=== PATIENT | female | born 1965 | race Caucasian/White ===

== ENCOUNTER 2017-07-25 12:04 | Observation (INO) | payer BC ==
[2017-07-25] MEDS: Dextrose 5%-Lactated Ringers 1,000 ML IV SCH ×2 (12:21→18:05)
[2017-07-25] MEDS: Enoxaparin 40 MG/0.4 ML Syringe SUBCUT SCH (13:12)
[2017-07-25] MEDS: Acetaminophen 325 MG Tab PO PRN (13:12)
[2017-07-25] MEDS ORDERED: Albuterol 8 GM Inhaler INH PRN (13:43)
[2017-07-25] MEDS ORDERED: SUMAtriptan 50 MG Tab PO PRN (14:30)
[2017-07-25] MEDS: Albuterol/Ipratropium 3.0-0.5 MG/3 ML Neb Soln NEB SCH ×2 (14:35→22:04)
[2017-07-25] MEDS: methylPREDNISolone Sodium Succinate 125 MG/2 ML SDV IVPUSH SCH ×2 (14:49→22:00)
[2017-07-25] MEDS: traMADol 50 MG Tab PO PRN ×2 (17:01→23:12)
[2017-07-25] MEDS: Oseltamivir 30 MG Cap PO SCH (18:04)
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
[2017-07-25] MEDS: LORazepam 0.5 MG Tab PO SCH (22:03)
[2017-07-25] MEDS: Topiramate 25 MG Tab PO SCH (22:03)
[2017-07-25] MEDS: Amitriptyline 25 MG Tab PO SCH (22:03)
[2017-07-25] MEDS: cefTRIAXone 1 GM Vial IVPUSH SCH (23:12)
[2017-07-26] MEDS: Dextrose 5%-Lactated Ringers 1,000 ML IV SCH (01:58)
[2017-07-26] MEDS: methylPREDNISolone Sodium Succinate 125 MG/2 ML SDV IVPUSH SCH ×3 (06:22→21:31)
[2017-07-26] MEDS: traMADol 50 MG Tab PO PRN ×3 (06:22→20:08)
[2017-07-26] MEDS: Levothyroxine 150 MCG Tab PO SCH (06:23)
[2017-07-26] MEDS: Albuterol/Ipratropium 3.0-0.5 MG/3 ML Neb Soln NEB SCH (07:12)
[2017-07-26] MEDS: cefTRIAXone 1 GM Vial IVPUSH SCH (07:56)
[2017-07-26] MEDS: Enoxaparin 40 MG/0.4 ML Syringe SUBCUT SCH (07:56)
[2017-07-26] MEDS: Multivitamins with Iron/Calcium/Folic Acid/Minerals Tab PO SCH (07:57)
[2017-07-26] MEDS: Montelukast 10 MG Tab PO SCH (07:57)
[2017-07-26] MEDS: Topiramate 25 MG Tab PO SCH ×2 (07:57→20:10)
[2017-07-26] MEDS: LORazepam 0.5 MG Tab PO SCH ×2 (07:57→20:09)
[2017-07-26] MEDS: Oseltamivir 30 MG Cap PO SCH ×2 (07:57→20:08)
[2017-07-26] MEDS: Venlafaxine 75 MG Cap.ER PO SCH (07:57)
[2017-07-26] MEDS: Acetaminophen 325 MG Tab PO PRN (07:57)
[2017-07-26] MEDS ORDERED: Ibuprofen 200 MG Tab PO PRN (08:37)
[2017-07-26] MEDS: BIOTIN 5 MG PO SCH (08:54)
[2017-07-26] MEDS: BUPROPION 450 MG PO SCH (08:54)
--- NOTE | 2017-07-26 09:36 | PN ---
Progress Note for SANTHOSH PRESCOTT Date: 07/26/2017 Room #: VM.212 SUBJECTIVE: The patient was admitted yesterday with a diagnosis of acute influenza A with exacerbation of asthma. Since being admitted, she has had problems with a headache as well as abdominal pain, it has gotten better today. She has been moving around in the room. She has been on a little bit less oxygen. She comments that the DuoNebs do make her tremulous. She had been watching the clock for the tramadol use for headaches. Since the patient has been up ambulating fairly well, the Lovenox is not felt to be necessary anymore. OBJECTIVE: Vital Signs: Her temperature now is down to 36.1 with max on admission of 38.9. Her pulse is 80 and blood pressure is 143/88. Her saturations are 97 on 1.5 L. General: She appears alert. Skin: Appears well hydrated. Heart: Regular rate and rhythm. Lungs: Do have inspiratory wheezes bilaterally, but there is better air exchange bilaterally noted. Abdomen: Bowel sounds present. Soft, nontender. Extremities: No edema. Neurologic: She is alert and pleasant to visit with. LABORATORY DATA: Chest x-ray today looks normal with no infiltrates seen. Her sputum culture did show gram-positive cocci with white blood cells present, with few epithelial cells. Her lab today; her white blood cell count is 4.3, hemoglobin 13.4, and platelets are 206; 87 segs, 3 bands, 8 lymphocytes. Sodium 142; potassium 4.1; creatinine 1.2, which may be her baseline; BUN 14; GFR is 47; glucose is up to 166. LFTs are normal. Her lactic acid was 0.8 on admission, did go up to 2.0 last evening, so hence the reason that Rocephin was added. Her CRP was 4.9 yesterday, it is down to 3.9 today. IMPRESSION: 1. Acute influenza A. 2. Possible bronchopneumonia. 3. Exacerbation of asthma. 4. Dehydration, improving. 5. Chronic kidney disease. 6. Chronic headache. PLAN: We will reduce her IV Solu-Medrol dose. We will stop the DuoNebs and instead have her use her albuterol MDI with a spacer to see if that helps improve lung function. To note, her peak flow was done today, it was 200. The patient does not need physical therapy. We will stop the Lovenox and actually offer ibuprofen as well for pain control for the patient. The patient does not quite feel safe to go home yet in terms of breathing oakley, and so we will continue her another 24 hours on observation and do anticipate she will be able to go home tomorrow. We will work on weaning off her oxygen as well. GM07/26/2017 08:41:44 MODL: 07/26/2017 09:23:28 /[id number]
[2017-07-26] MEDS: Amitriptyline 25 MG Tab PO SCH (20:09)
[2017-07-27] MEDS: Levothyroxine 150 MCG Tab PO SCH (06:17)
[2017-07-27] MEDS: methylPREDNISolone Sodium Succinate 125 MG/2 ML SDV IVPUSH SCH (06:17)
[2017-07-27] MEDS: traMADol 50 MG Tab PO PRN (06:18)
[2017-07-27] MEDS: Oseltamivir 30 MG Cap PO SCH (07:56)
[2017-07-27] MEDS: LORazepam 0.5 MG Tab PO SCH (07:57)
[2017-07-27] MEDS: BUPROPION 450 MG PO SCH (07:57)
[2017-07-27] MEDS: BIOTIN 5 MG PO SCH (07:57)
[2017-07-27] MEDS: Montelukast 10 MG Tab PO SCH (07:57)
[2017-07-27] MEDS: cefTRIAXone 1 GM Vial IVPUSH SCH (07:57)
[2017-07-27] MEDS: Venlafaxine 75 MG Cap.ER PO SCH (07:57)
[2017-07-27] MEDS: Multivitamins with Iron/Calcium/Folic Acid/Minerals Tab PO SCH (07:58)
[2017-07-27] MEDS: Topiramate 25 MG Tab PO SCH (07:58)
--- NOTE | 2017-07-27 08:59 | PN ---
Progress Note for SANTHOSH PRESCOTT Date: 07/27/2017 Room #: VM.212 SUBJECTIVE: The patient is feeling better, but still somewhat tight. She has been able to get off oxygen. She has been drinking well. Her IV fluids were stopped yesterday. OBJECTIVE: Vital Signs: Today, her temperature is 36.3, her pulse is 90, her blood pressure is 152/89, respiratory rate is 20, her sats are 94% on room air. Her peak flow meter was noted to be 250, which has improved from 200. Heart: Regular rate and rhythm. Lungs: Do reveal inspiratory wheezes bilaterally, but much better air flow. Abdomen: Soft. Extremities: No edema. LABORATORY DATA: Current lab today shows that her sputum culture was normal nguyễn. Her white blood cell count was down to 12.2, which I feel is related to her IV steroids. She still has a left shift. Hemoglobin is 14.0. Sodium 139, potassium 4.1, creatinine 1.1, GFR is 52, glucose is 133. IMPRESSION: 1. Influenza A. 2. Bronchopneumonia. 3. Exacerbation of asthma. PLAN: I do feel the patient is stable to be discharged home. She commented that [facility] not wanting her to give him influenza. I stated that she is afebrile and on medicines for over 24 hours, so she should not be contagious. She should not though return to work until seen in the clinic by Carmen Huang. We will place her on oral prednisone as well as Ceftin antibiotics as well as she will be using her albuterol inhalers at home. GM07/27/2017 08:34:24 MODL: 07/27/2017 08:50:15 /[id number]
--- NOTE | 2017-07-27 10:15 | DISCH ---
PRIMARY DIAGNOSES: 1. Influenza A. 2. Exacerbation of asthma. 3. Bronchitis. 4. Mild dehydration. 5. Chronic kidney disease. 6. Headache. 7. Chronic migraine headaches. 8. Deconditioning. SUMMARY OF ADMIT HISTORY AND PHYSICAL: The patient is a 51-year-old female presents to the clinic who was initially seen by Carmen Huang. She is noted to be quite short of breath. She was tachycardic, pulses up to the 120s. She felt to be weak. She was feeling short of breath. On physical exam, she had quite tight lungs and she was flushed. She had been having a fever up to 102 and so it is felt need to be admitted to the hospital and further worked up. SUMMARY OF HOSPITAL COURSE: The patient's testing for influenza a came back positive. She was started on Tamiflu orally. She was given IV fluids of D5 LR. Also, she was started on IV Solu-Medrol as she was fairly tight in terms of respiratory function. Her chest x-ray did not show a pneumonia present. To note, her sputum culture was positive for white blood cells and since her lactic acid had gone from 0.6-2.0 after 4 hours, she was started on IV Rocephin as well to cover possible concurrent bacterial infection. Her white blood cell count on admission was 6.3, hemoglobin 14.3, platelets 191 with 80% segs, 6 lymphocytes, 11 monocytes. Sodium 135, potassium 4.0, creatinine 1.3, GFR 43, BUN 13. Lactic acid was 0.8. Lactic acid did go up to 2.0. The patient's IV fluids were run for a day and a half. However, she is fairly tight lung oakley and not ready to go home after 24 hours, so she was kept on observation status. By 07/27/2017, her white blood cell count was up to 12.2, hemoglobin 14.0, platelets 255 with 83 segs, 8% lymphocytes, 7 monocytes. Sodium 139, potassium 4.1, creatinine 1.2, BUN 20, GFR is 52. Glucose had gone up slightly because of the IV steroids. The patient initially received DuoNeb treatments, however, she became tachycardic from this. We just switched to her oral MDI and she is supposed to use a spacer with this. Prior to her discharge her BP abdoul to 140/117, she was given a lorazepam and her BP dropped to 148/72 and so was allowed to be discharged home. MEDICATIONS: At discharge will be Ceftin 250 mg 1 pill twice a day for 5 days, prednisone 40 mg daily for 5 days, Tamiflu 30 mg b.i.d. for a day and half, albuterol MDI 2 puffs q.4 hours p.r.n., and her other pre-admission medications which will be albuterol 2 puffs q.4 hours p.r.n., amitriptyline 25 mg at bedtime, levothyroxine 175 mcg 1 pill Monday, Monday, , Monday, and 150 mg Monday, Monday, Monday. Multivitamin 1 pill daily, Singulair 10 mg 1 pill daily, biotin 10 mg 1 pill daily, Wellbutrin SR 450 mg daily, Effexor 75 mg 1 pill daily, Topamax 25 mg takes 2 pills twice a day, lorazepam 0.5 mg 1 p.o. b.i.d., and Imitrex 100 mg daily as directed. ACTIVITY: Light. Food is normal. She is to use her spacer with her MDI as well. GM07/27/2017 08:39:12 MODL: 07/27/2017 09:47:37 /[id number]
[2017-07-27 10:48] VITALS: BP 148/72
[2017-07-27] MEDS ORDERED: Cefuroxime 250 MG Tab PO SCH (20:00)
[2017-07-29] MEDS ORDERED: predniSONE 20 MG Tab PO SCH (08:00)
== END 2017-07-27 10:56 | disposition home or self-care (01) ==
LOC: VM.MS 12:06
PROVIDERS: ADMIT Family Medicine; ATTEND Family Medicine
DX: J10.1 Influenza due to other identified influenza virus with other respiratory manifestations (principal); J45.901 Unspecified asthma with (acute) exacerbation; E86.0 Dehydration; N18.9 Chronic kidney disease, unspecified; G43.909 Migraine, unspecified, not intractable, without status migrainosus; E03.9 Hypothyroidism, unspecified; F32.9 Major depressive disorder, single episode, unspecified; F41.9 Anxiety disorder, unspecified; E78.1 Pure hyperglyceridemia; E66.9 Obesity, unspecified; Z79.899 Other long term (current) drug therapy; Z88.1 Allergy status to other antibiotic agents; Z91.030 Bee allergy status; Z91.040 Latex allergy status; J30.81 Allergic rhinitis due to animal (cat) (dog) hair and dander; Z87.891 Personal history of nicotine dependence
CPT/HCPCS: 36415; 71046; 80048; 80053; 83605; 85025; 86140; 87070; 87205; 87804; 94640; 94760; A9270; J0696; J1650; J2930; J7042; 96360; 96361; 96372; 96374; 96375; 96376; G0378

== ENCOUNTER 2017-11-07 14:46 | Emergency (ER) | payer BC, OTHER ==
[2017-11-07] MEDS ORDERED: Sodium Chloride 0.9% 10 ML Syringe FLUSH PRN (15:00)
[2017-11-07] MEDS ORDERED: Lactated Ringers 1,000 ML IV ONE (15:01)
--- NOTE | 2017-11-07 15:05 | EDM.PDOC ---
ED HPI GENERAL MEDICAL PROBLEM - General Chief Complaint: Flank Pain Stated Complaint: Left Flank Pain Time Seen by Provider: 11/07/17 14:54 Source of Information: Reports: Patient, Old Records, RN History Limitations: Reports: No Limitations - History of Present Illness INITIAL COMMENTS - FREE TEXT/NARRATIVE: Patient presents to the ED at [facility] with severe left flank pain that started a week ago and has progressively gotten worse. The patient presented to the [facility] clinic today, who sent her to this ER for further workup and treatment. 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 She is suppose to be on a protein restricted diet, but over the past couple of days, she has consumed between 50-60 grams of protein. Patient states "I was not that aware of so much protein in salads." Patient states the pain is left flank. She has no issues with urination. No problems with BM's. She is not under the care of a Inspector Of Weights And Measures. 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: Reports: Other (see below) (None) Left Flank Pain Score (Numeric/FACES): 6 - Related Data Allergies Allergy/AdvReac Type Severity Reaction Status Date / Time animal dander Allergy Other Verified 11/07/17 15:03 bee pollen Allergy Airway Verified 11/07/17 15:03 Tightness latex Allergy Other Verified 11/07/17 15:03 Tetracyclines Allergy Other Verified 11/07/17 15:03 Home Meds: Home Meds Albuterol Sulfate [Albuterol Sulfate HFA] 2 puff INH Q4H PRN 09/11/14 [History] Levothyroxine Sodium [Synthroid] 150 mcg PO MOWEFR@0700 09/11/14 [History] Levothyroxine Sodium [Synthroid] 175 mcg PO SUTUTHSA@0700 09/11/14 [History] Multivitamin [Multi-Vitamin Daily] 1 tab PO DAILY 09/11/14 [History] Amitriptyline [Elavil] 25 mg PO BEDTIME 07/25/17 [History] Biotin 5 mg PO DAILY 07/25/17 [History] LORazepam 0.5 mg PO BID 07/25/17 [History] Montelukast Sodium 10 mg PO DAILY 07/25/17 [History] SUMAtriptan Succinate [Imitrex] 100 mg PO ASDIRECTED 07/25/17 [History] Topiramate [Topamax] 50 mg PO BID 07/25/17 [History] Venlafaxine [Effexor XR] 75 mg PO DAILY 07/25/17 [History] buPROPion [Wellbutrin SR] 450 mg PO DAILY 07/25/17 [History] Cefuroxime Axetil [Cefuroxime] 250 mg PO BID #10 tablet 07/27/17 [Rx] Oseltamivir [Tamiflu] 30 mg PO BID #3 cap 07/27/17 [Rx] Prednisone [IJD: predniSONE] 40 mg PO WITHBREAKFAST 5 Days #10 tablet 07/27/17 [ Rx] Past Medical History Respiratory History: Reports: Asthma Genitourinary History: Reports: Other (See Below) Other Genitourinary History: Kidney disease - Infectious Disease History Infectious Disease History: Reports: Chicken Pox - Past Surgical History HEENT Surgical History: Reports: Naso-Sinus Surgery Respiratory Surgical History: Reports: None GI Surgical History: Reports: Other (See Below) Other GI Surgeries/Procedures: Pt angioplasty for abd. Social & Family History - Family History Family Medical History: Noncontributory - Tobacco Use Smoking Status *Q: Former Smoker Used Tobacco, but Quit: Yes Month/Year Tobacco Last Used: jul - Caffeine Use Caffeine Use: Reports: Coffee, Soda - Alcohol Use Days Per Week of Alcohol Use: 2 Number of Drinks Per Day: 4 Total Drinks Per Week: 8 - Recreational Drug Use Recreational Drug Use: No ED ROS GENERAL - Review of Systems Review Of Systems: See Below Constitutional: Reports: Fever. Denies: Chills, Weakness Respiratory: Denies: Shortness of Breath, Cough Cardiovascular: Denies: Chest Pain, Palpitations GI/Abdominal: Denies: Abdominal Pain, Nausea, Vomiting : Reports: Flank Pain Skin: Reports: No Symptoms Neurological: Reports: No Symptoms. Denies: Dizziness, Headache ED EXAM, GI/ABD - Physical Exam Exam: See Below Exam Limited By: No Limitations General Appearance: Alert, No Apparent Distress Respiratory/Chest: No Respiratory Distress, Decreased Breath Sounds, Wheezing Cardiovascular: Normal Peripheral Pulses, Regular Rate, Rhythm GI/Abdominal Exam: Soft, Non-Tender, Abnormal Bowel Sounds (Hypoactive) Back Exam: CVA Tenderness (L), Muscle Spasm Neurological: Alert, Oriented Skin Exam: Warm, Dry, Intact, Normal Color Course - Vital Signs Last Recorded V/S: Last Vital Signs Temp 37.3 C 11/07/17 14:55 Pulse 90 11/07/17 14:55 Resp 16 11/07/17 14:55 BP 157/101 H 11/07/17 14:55 Pulse Ox 97 11/07/17 14:55 - Orders/Labs/Meds Orders: Active Orders 24 hr Category Date Time Status Abdomen Pelvis w Cont [CT] Stat Exams 11/07/17 16:03 Taken UA W/MICROSCOPIC [URIN] Stat Lab 11/07/17 15:25 Ordered Sodium Chloride 0.9% [Saline Flush] Med 11/07/17 15:00 Active 10 ml FLUSH ASDIRECTED PRN Peripheral IV Insertion Adult [OM.PC] Routine Oth 11/07/17 15:00 Ordered Medication Orders Sodium Chloride (Saline Flush) 10 ml FLUSH ASDIRECTED PRN PRN Reason: Keep Vein Open Labs: Laboratory Tests 11/07/17 11/07/17 11/07/17 Range/Units 15:24 15:24 15:24 WBC 4.9 (4.0-10.0) x10^3/uL RBC 4.14 (4.00-5.50) x10^6/uL Hgb 13.5 (12.0-16.0) g/dL Hct 39.1 (33.0-47.0) % MCV 94.4 H (78.0-93.0) fL MCH 32.6 H (26.0-32.0) pg MCHC 34.5 (32.0-36.0) g/dL RDW Coeff of Aisha 12.0 (10.0-15.0) % Plt Count 239 (130-400) x10^3/uL Neut % (Auto) 61.0 (50.0-80.0) % Lymph % (Auto) 22.4 L (25.0-50.0) % [place] % (Auto) 10.7 (2.0-11.0) % Eos % (Auto) 5.5 H (0.0-4.0) % Baso % (Auto) 0.4 (0.2-1.2) % Sodium 140 (136-145) mmol/L Potassium 3.8 (3.5-5.1) mmol/L Chloride 103 (98-107) mmol/L Carbon Dioxide 27 (21-32) mmol/L Anion Gap 13.8 (10-20) mmol/L BUN 19 H (7-18) mg/dL Creatinine 1.2 H (0.55-1.02) mg/dL Est Cr Clr Drug Dosing 48.79 mL/min Estimated GFR (MDRD) 47 Glucose 100 (74-106) mg/dL Lactic Acid < 0.3 L (0.4-2.0) mmol/L Calcium 8.9 (8.5-10.1) mg/dL Corrected Calcium 9.22 (8.5-10.1) mg/dL Total Bilirubin 0.4 (0.2-1.0) mg/dL AST 25 (15-37) U/L ALT 36 (14-59) U/L Alkaline Phosphatase 82 (46-116) U/L C-Reactive Protein < 0.2 (<=0.9) mg/dL Total Protein 7.6 (6.4-8.2) g/dL Albumin 3.6 (3.4-5.0) g/dL Globulin 4.0 Albumin/Globulin Ratio 0.90 Amylase 30 (25-115) U/L Lipase 121 (73-393) U/L Urine Color (YELLOW) Urine Appearance (CLEAR) Urine pH (5.0-8.0) Ur Specific [place] Urine Protein (NEGATIVE) mg/dL Urine Glucose (UA) (NEGATIVE) mg/dL Urine Ketones (NEGATIVE) mg/dL Urine Occult Blood (NEGATIVE) Urine Nitrite (NEGATIVE) Urine Bilirubin (NEGATIVE) Urine Urobilinogen (0.2) EU/dL Ur Leukocyte Esterase (NEGATIVE) Urine RBC (NOT SEEN) /HPF Urine WBC (NOT SEEN) /HPF Ur Squamous Epith Cells (NEGATIVE) /HPF Urine Bacteria (NEGATIVE) /HPF Urine Mucus (NEGATIVE) /LPF 11/07/17 Range/Units 15:25 WBC (4.0-10.0) x10^3/uL RBC (4.00-5.50) x10^6/uL Hgb (12.0-16.0) g/dL Hct (33.0-47.0) % MCV (78.0-93.0) fL MCH (26.0-32.0) pg MCHC (32.0-36.0) g/dL RDW Coeff of Aisha (10.0-15.0) % Plt Count (130-400) x10^3/uL Neut % (Auto) (50.0-80.0) % Lymph % (Auto) (25.0-50.0) % [place] % (Auto) (2.0-11.0) % Eos % (Auto) (0.0-4.0) % Baso % (Auto) (0.2-1.2) % Sodium (136-145) mmol/L Potassium (3.5-5.1) mmol/L Chloride (98-107) mmol/L Carbon Dioxide (21-32) mmol/L Anion Gap (10-20) mmol/L BUN (7-18) mg/dL Creatinine (0.55-1.02) mg/dL Est Cr Clr Drug Dosing mL/min Estimated GFR (MDRD) Glucose (74-106) mg/dL Lactic Acid (0.4-2.0) mmol/L Calcium (8.5-10.1) mg/dL Corrected Calcium (8.5-10.1) mg/dL Total Bilirubin (0.2-1.0) mg/dL AST (15-37) U/L ALT (14-59) U/L Alkaline Phosphatase (46-116) U/L C-Reactive Protein (<=0.9) mg/dL Total Protein (6.4-8.2) g/dL Albumin (3.4-5.0) g/dL Globulin Albumin/Globulin Ratio Amylase (25-115) U/L Lipase (73-393) U/L Urine Color Yellow (YELLOW) Urine Appearance Clear (CLEAR) Urine pH 7.0 (5.0-8.0) Ur Specific [place] 1.015 Urine Protein Negative (NEGATIVE) mg/dL Urine Glucose (UA) Negative (NEGATIVE) mg/dL Urine Ketones Negative (NEGATIVE) mg/dL Urine Occult Blood Negative (NEGATIVE) Urine Nitrite Negative (NEGATIVE) Urine Bilirubin Negative (NEGATIVE) Urine Urobilinogen 0.2 (0.2) EU/dL Ur Leukocyte Esterase Negative (NEGATIVE) Urine RBC 0-5 (NOT SEEN) /HPF Urine WBC 0-5 (NOT SEEN) /HPF Ur Squamous Epith Cells Rare (NEGATIVE) /HPF Urine Bacteria Not seen (NEGATIVE) /HPF Urine Mucus Not seen (NEGATIVE) /LPF Meds: Medications Generic Name Dose Route Start Last Admin Trade Name Rosana PRN Reason Stop Dose Admin Sodium Chloride 10 ml 11/07/17 15:00 Saline Flush FLUSH ASDIRECTED PRN Keep Vein Open Discontinued Medications Generic Name Dose Route Start Last Admin Trade Name Freq PRN Reason Stop Dose Admin Lactated Ringer's 1,000 mls @ 999 mls/hr 11/07/17 15:01 11/07/17 15:37 Ringers, Lactated IV 11/07/17 16:01 999 mls/hr ONETIME ONE Administration Iopamidol 100 ml 11/07/17 16:14 11/07/17 16:38 Isovue-300 (61%) IVPUSH 11/07/17 16:15 100 ml ONETIME ONE Administration Morphine Sulfate 2 mg 11/07/17 15:34 11/07/17 15:40 Morphine IVPUSH 11/07/17 15:35 2 mg ONETIME ONE Administration - Radiology Interpretation Free Text/Narrative:: CT Abd/Pelvis w/contrast: Mild nonspecific bowel distention; no diverticulitis; no obstruction of either kidney CT Results Date: 11/07/17 CT Results Time: 16:54 Departure - Departure Time of Disposition: 17:16 Disposition: Home, Self-Care 01 Condition: Good Clinical Impression: Flank pain - Discharge Information Instructions: Acute Pain, Adult, Flank Pain, Adult Referrals: Carmen Huang PA-C [Primary Care Provider] - Forms: ED Department Discharge Additional Instructions: 1. Stay well hydrated and rest 2. Continue same medications at home without any changes 3. LOTS of water 4. See your Primary as symptoms warrant 5. Call us for any questions/concerns - Problem List Review Problem List Initiated/Reviewed/Updated: Yes - My Orders Last 24 Hours: My Active Orders 11/07/17 15:00 Sodium Chloride 0.9% [Saline Flush] 10 ml FLUSH ASDIRECTED PRN Peripheral IV Insertion Adult [OM.PC] Routine 11/07/17 15:25 UA W/MICROSCOPIC [URIN] Stat 11/07/17 16:03 Abdomen Pelvis w Cont [CT] Stat - Assessment/Plan Last 24 Hours: My Active Orders 11/07/17 15:00 Sodium Chloride 0.9% [Saline Flush] 10 ml FLUSH ASDIRECTED PRN Peripheral IV Insertion Adult [OM.PC] Routine 11/07/17 15:25 UA W/MICROSCOPIC [URIN] Stat 11/07/17 16:03 Abdomen Pelvis w Cont [CT] Stat Assessment:: Left flank pain, unknown etiology Plan: Labs and CT scan discussed with patient. No emergent etiology found for current symptoms. Will discharge patient home and have her follow up with her PCP as symptoms warrant.
[2017-11-07] MEDS ORDERED: Morphine 2 MG/ML Syringe IVPUSH ONE (15:34)
[2017-11-07 15:56] LABS: CHLORIDE,CL 103 mmol/L (98-107); SODIUM,NA 140 mmol/L (136-145)
[2017-11-07] MEDS ORDERED: Iopamidol 612 MG/ML 100 ML Bottle IVPUSH ONE (16:14)
[2017-11-07 17:44] VITALS: BP 149/107
== END 2017-11-07 17:30 | disposition home or self-care (01) ==
LOC: VM.ED 14:46
DX: R10.9 Unspecified abdominal pain (principal); Z91.030 Bee allergy status; Z91.040 Latex allergy status; Z88.1 Allergy status to other antibiotic agents; Z91.048 Other nonmedicinal substance allergy status; Z79.899 Other long term (current) drug therapy; Z87.891 Personal history of nicotine dependence
CPT/HCPCS: 36415; 74177; 80053; 81001; 82150; 83605; 83690; 85025; 86140; 96361; 96374; 99284; J2270; J7120; Q9967